=== PATIENT | male | born 1965 | race Caucasian/White ===

== ENCOUNTER 2017-12-06 08:27 | Emergency (ER) | payer SELFPAY ==
[~2017-12-06] VITALS: Ht 177.8 cm; Wt 93.0 kg
[2017-12-06] MEDS ORDERED: IBUPROFEN 600MG TABLET PO ONE (09:30)
[2017-12-06 12:16] VITALS: BP 117/78
== END 2017-12-06 12:47 | disposition home or self-care (01) ==
LOC: ER 08:27
DX: S82.62XA Displaced fracture of lateral malleolus of left fibula, initial encounter for closed fracture (principal); E78.00 Pure hypercholesterolemia, unspecified; W22.8XXA Striking against or struck by other objects, initial encounter; Y93.89 Activity, other specified; Y92.89 Other specified places as the place of occurrence of the external cause; Y99.8 Other external cause status
CPT/HCPCS: 29515; 73610; 99284